=== PATIENT | male | born 1960 | race Caucasian/White ===

== ENCOUNTER 2017-11-02 02:13 | Emergency (ER) | payer MEDICAID ==
[2017-11-02] MEDS: SOD CHLORIDE 0.9% 1,000 ML IV (02:24)
[2017-11-02] MEDS: morphine 4 MG/ML VIAL IV (02:26)
[2017-11-02] MEDS: SILVER SULFADIAZINE 1% 25 GM CR TOP ×2 (02:26→04:15)
[2017-11-02 06:51] LABS: MODE ROOM AIR; MetHgb Venous 0.5 %; Sample Type Blood venous; Site VENOUS LINE; Venous COHb 0.2 %; Venous Fraction OxyHgb 78.6 %; Venous Oxygen Sat 79.2 mmHG (55.0-75.0); Venous Total Hemglobin 16.5 g/dl
== END 2017-11-02 07:21 | disposition home or self-care (01) ==
LOC: E/R 02:13
DX: T20.27XA Burn of second degree of neck, initial encounter (principal); T22.251A Burn of second degree of right shoulder, initial encounter; T21.23XA Burn of second degree of upper back, initial encounter; T22.211A Burn of second degree of right forearm, initial encounter; X00.8XXA Other exposure to uncontrolled fire in building or structure, initial encounter; Y92.039 Unspecified place in apartment as the place of occurrence of the external cause
CPT/HCPCS: 16025; 36415; 82375; 82803; 96374; 99284-25